=== PATIENT | female | born 1980 | race American Indian/Alaskan Native ===

== ENCOUNTER 2017-07-10 07:54 | Inpatient (IN) | payer OTHER, MEDICAID ==
[2017-07-10] MEDS ORDERED: Penicillin G Potassium 5 MILLUNITS in Sodium Chloride 0.9% 100 ML IV ONE (08:59)
[2017-07-10] MEDS ORDERED: Lidocaine 1% 30 ML SDV INJECT PRN (09:15)
[2017-07-10] MEDS ORDERED: Acetaminophen 325 MG Tab PO PRN (09:15)
[2017-07-10] MEDS ORDERED: Ondansetron 4 MG/2 ML SDV IV PRN (09:15)
[2017-07-10] MEDS ORDERED: Methylergonovine 0.2 MG/1 ML Amp IM PRN (09:15)
[2017-07-10] MEDS ORDERED: Carboprost Tromethamine 250 MCG/1 ML Amp IM PRN (09:15)
[2017-07-10] MEDS ORDERED: Lactated Ringers 500 ML IV ONE (09:15)
[2017-07-10] MEDS ORDERED: Tranexamic Acid 1,000 MG in Sodium Chloride 0.9% 100 ML IV PRN (09:15)
[2017-07-10] MEDS ORDERED: Lactated Ringers 1,000 ML IV SCH (09:15)
[2017-07-10] MEDS ORDERED: Misoprostol 400 MCG (4 X 100 MCG TAB) RECTAL PRN (09:15)
[2017-07-10] MEDS ORDERED: Sodium Chloride 0.9% 10 ML Syringe FLUSH PRN ×2 (09:15→10:23)
[2017-07-10] MEDS ORDERED: Nalbuphine 20 MG/1 ML Amp IVPUSH PRN (09:25)
[2017-07-10] MEDS ORDERED: Simethicone 80 MG Tab.Chew PO PRN (10:23)
[2017-07-10] MEDS ORDERED: Zolpidem 5 MG Tab PO PRN (10:23)
[2017-07-10] MEDS ORDERED: Benzocaine/Menthol 20%-0.5% Spray 56 GM Canister TOP PRN (10:23)
[2017-07-10] MEDS ORDERED: Oxytocin/Normal Saline 30 UNIT/500 ML BAG IV SCH (10:30)
--- NOTE | 2017-07-10 11:00 | PN ---
DATE: 07/10/2017 SUBJECTIVE: Pain medications through IV provided temporary relief from contractions. She does not want an intrathecal. She continues to have regular contractions with progressive cervical dilation. An AmniHook was used to rupture membranes and a small amount of clear fluid was observed. OBJECTIVE: Pelvic: Cervical exam, 7 to 8 cm dilation, 80% effaced, and 0 station, vertex suspected. heart tones tracing average of 130 at baseline. Accelerations noted with no decelerations. Category I strip. [place] tracing contractions every 2 minutes. ASSESSMENT: week IUP in active labor. GBS positive AROM- clear fluid. PLAN: We will continue to serially evaluate the patient, and at this time, anticipate a normal spontaneous vaginal delivery. [facility] /[id number] BRIAN
--- NOTE | 2017-07-10 11:06 | PCM.DEL ---
L & D Note - General Info Date of Service: 07/10/17 (1049) Mother's Due Date: 07/20/17 (38 3/7 week IUP) - Delivery Note Labor: Spontaneous Delivery Outcome: Livebirth Delivery Method: Spontaneous Vaginal Delivery-Single Presentation: Vertex Nuchal Cord: None Anesthesia Type: None Amniotic Fluid Description: Clear Episiotomy Type: None Laceration: None Placenta: Intact, Spontaneous, Expressed Cord: 3 Vessels Estimated Blood Loss: 300 Resuscitation Needed: No : Bulb Syringe, Stimulated, [place] Used Provider: Phi Elliott Score 1 min: 9 Score 5 min: 9 Second Stage Interventions: Reports: Pushing Effectively, Pushing, Feet in Foot Rests Delivery Comments (Free Text/Narrative):: , OA, Viable male over intact perineum Cord 3 vessel not around neck Placenta delivered by simple expression intact Mother and in good condition Viable male , Weight- 7 lbs 1oz Length- 20 1/2 inches 's- 9 and 9 at 1 minute and 5 minutes. - Patient Data Weight - Most Recent: 482 lb 12.997 oz Lab Results Last 24 Hours: Laboratory Results - last 24 hr 07/10/17 Range/Units 08:35 WBC 14.9 H (5.0-10.0) 10^3/uL RBC 4.29 (4.2-5.4) 10^6/uL Hgb 12.6 (12.0-16.0) g/dL Hct 37.3 (37.0-47.0) % MCV 86.9 (80-100) fL MCH 29.4 (27.0-34.0) pg MCHC 33.8 (33.0-35.0) g/dL Plt Count 187 (150-450) 10^3/uL Med Orders - Current: Current Medications Acetaminophen (Tylenol) 650 mg PO Q4H PRN PRN Reason: Pain (Mild 1-3) and fever Benzocaine/Menthol (Dermoplast Pain Relief [place]) 0 gm TOP Q4H PRN PRN Reason: Perineal comfort measures Carboprost Tromethamine (Hemabate Ds) 250 mcg IM ASDIRECTED PRN PRN Reason: HEMORRHAGE Docusate Sodium (Colace) 100 mg PO BID PRN PRN Reason: Constipation Ferrous Sulfate (Ferrous Sulfate) 325 mg PO WITHBREAKFAST [facility] Penicillin G Potassium 3 (millunits/ Sodium Chloride) 100 mls @ 200 mls/hr IV Q4H CHANDRIKA Lactated Ringer's (Ringers, Lactated) 500 mls @ 125 mls/hr IV .BOLUS ONE Stop: 07/10/17 13:14 Last Admin: 07/10/17 08:35 Dose: 500 mls/hr Lactated Ringer's (Ringers, Lactated) 1,000 mls @ 125 mls/hr IV ASDIRECTED CHANDRIKA Tranexamic Acid 1,000 mg/ (Sodium Chloride) 110 mls @ 660 mls/hr IV ONETIME PRN PRN Reason: Bleeding Oxytocin/Sodium Chloride (Pitocin In Ns 30 Unit/500 Ml) 30 unit in 500 mls @ 2 mls/hr IV TITRATE CHANDRIKA; 2 MUNITS/MIN PRN Reason: Protocol Ibuprofen (Motrin) 800 mg PO Q8H PRN PRN Reason: Mild Pain or Fever Lidocaine HCl (Xylocaine-Mpf 1%) 10 ml INJECT ASDIRECTED PRN PRN Reason: Perineal Repair Methylergonovine Maleate (Methergine) 0.2 mg IM ASDIRECTED PRN PRN Reason: Hemorrhage Misoprostol (Cytotec) 800 mcg RECTAL ASDIRECTED PRN PRN Reason: Hemorrhage Nalbuphine HCl (Nubain) 10 mg IVPUSH ONETIME PRN PRN Reason: Abdominal Pain Last Admin: 07/10/17 09:20 Dose: 10 mg Ondansetron HCl (Zofran) 4 mg IV Q4H PRN PRN Reason: Nausea/Vomiting Prenat Multivit/[employer]ior [employer]ist/Iron/Folic Ac ( Plus Iron) 1 each PO DAILY [facility] Simethicone (Simethicone) 80 mg PO Q4H PRN PRN Reason: Gas Sodium Chloride (Saline Flush) 10 ml FLUSH ASDIRECTED PRN PRN Reason: Keep Vein Open Sodium Chloride (Saline Flush) 10 ml FLUSH ASDIRECTED PRN PRN Reason: Keep Vein Open Zolpidem Tartrate (Ambien) 5 mg PO BEDTIME PRN PRN Reason: Insomnia Discontinued Medications Penicillin G Potassium 5 (millunits/ Sodium Chloride) 100 mls @ 200 mls/hr IV ONETIME ONE Stop: 07/10/17 09:28 Last Admin: 07/10/17 09:22 Dose: 200 mls/hr - Problem List Review Problem List Initiated/Reviewed/Updated: Yes - My Orders Last 24 Hours: My Active Orders 07/10/17 10:23 Benzocaine/Menthol [Dermoplast Pain Relief [place]] See Dose Instructions TOP Q4H PRN Docusate Sodium [Colace] 100 mg PO BID PRN Ibuprofen [Motrin] 800 mg PO Q8H PRN Simethicone 80 mg PO Q4H PRN Sodium Chloride 0.9% [Saline Flush] 10 ml FLUSH ASDIRECTED PRN Zolpidem [Ambien] 5 mg PO BEDTIME PRN 07/10/17 10:24 Up ad Verenice [RC] ASDIRECTED Assess Lochia [WOMSER] Per Unit Routine Assess Uterine Involution [WOMSER] Per Unit Routine Breast Pump [WOMSER] Per Unit Routine Ice Therapy [OM.PC] Per Unit Routine Perineal Care [OM.PC] Per Unit Routine Saline Lock Insert [OM.PC] Urgent Sitz Bath [OM.PC] Per Unit Routine 07/10/17 10:26 Peripheral IV Discontinue [OM.PC] Routine 07/10/17 10:30 Oxytocin/Normal Saline [Pitocin in NS 30 UNIT/500 ML] 30 unit in 500 ml IV TITRATE 07/10/17 13:00 Penicillin G Potassium [Pfizerpen] 3 millunits Sodium Chloride 0.9% [Normal Saline] 100 ml IV Q4H 07/11/17 06:00 CBC W/O DIFF,HEMOGRAM [HEME] Routine 07/11/17 08:00 Ferrous Sulfate 325 mg PO WITHBREAKFAST 07/11/17 09:00 Vit with Ca/FA/Iron [ Plus Iron] 1 each PO DAILY
[2017-07-10] MEDS ORDERED: Penicillin G Potassium 3 MILLUNITS in Sodium Chloride 0.9% 100 ML IV SCH (13:00)
--- NOTE | 2017-07-10 13:54 | HP ---
CHIEF COMPLAINT: Contractions beginning at 11:00 p.m. last night that have increased in frequency and intensity. HISTORY OF PRESENT ILLNESS: The patient is a 37-year-old G4, P1-1-1-2, currently at 38 and 3/7 weeks' of her intrauterine confirmed with a 20 and 6/7 weeks' ultrasound. Normally a patient of Dr. Rankin, she presents with her significant other, Neo. She states that after having a cervical check in the clinic by Dr. Griggs yesterday, she felt something was different and began having regular contractions around 11:00 p.m. last night that lasted throughout the night. The contractions initially were 8 to 10 minutes apart. Throughout the night they increased in intensity and are now 2 to 3 minutes apart. She denies leakage of fluid or vaginal bleeding, and movement has been good. She denies any recent fevers or chills, shortness of breath or chest pain, or edema, erythema, or tenderness in any extremity. She states that she has remained nauseous throughout most of her with occasional vomiting. She was taking Zofran for this earlier in the but has not taken it recently. She did have a migraine headache earlier this week without aura. She denies any other +recent headaches or visual changes. She denies any antepartum complications with this . HISTORY: This is the patient's fourth . Her first produced a term at 40 and 0/7 weeks on April 06, 2000, via spontaneous vaginal delivery at [facility] in [place], weighing 2693 g. Her second in 2009, resulted in a spontaneous at 14 weeks gestation. Her third resulted in a spontaneous vaginal delivery that was vacuum assisted at 35 weeks and 4 days gestation, producing a male weighing 2574 g, delivered by Dr. Yadav, at [facility] in [place] on June 23, 2014. She denies any antepartum complications with any pregnancies and, other than the vacuum assist with her third , she denies any intrapartum complications. She denies any complications with any prior delivery. PAST MEDICAL HISTORY: She has no current medical conditions. MEDICATIONS: 1. vitamins. ALLERGIES: Bactrim, developed blisters in her mouth as a baby. No other known allergies. PAST SURGICAL HISTORY: 1. Cholecystectomy in April 2012. 2. [place] tooth removal. FAMILY HISTORY: The patient herself is a twin. Cervical cancer in her paternal aunt and cousin. Thyroid disease in her mother. Pertinent negatives include defects or problems with anesthesia or bleeding problems as well as any history of diabetes, heart disease, lung disease, liver or kidney disease in any of her immediate family. Her 2 children are healthy. SOCIAL HISTORY: The patient is here with her significant other, Neo. She lives in [place] with her daughter who is 17, and her son who is 2. Neo has 3 kids. She currently works at the "[employer] in [place]". She is a current half pack per day smoker. She denies use of alcohol or any other drugs including marijuana, methamphetamine, and cocaine during her . She denies any history of recent travel. REVIEW OF SYSTEMS: Pertinent positives and negatives as listed under the HPI. PHYSICAL EXAMINATION: Vital Signs: To be updated and listed in [facility]. General: Alert, pleasant, well-appearing female in no acute distress. HEENT: Atraumatic. Anicteric sclerae. Oropharynx without erythema or exudate. Tonsils not enlarged. Extraocular muscles intact. No obvious deformities to external ears. Neck: Supple without adenopathy or stiffness. Heart: Regular rate and rhythm. S1 and S2. Lungs: Clear to auscultation bilaterally with normal respiratory effort. Abdomen: Soft, gravid. Neurologic: No obvious neurologic deficits. No clonus. Cervix: 3.5 cm dilated, 60% effaced, -1 station, vertex suspected. Extremities: No edema, erythema, or tenderness in any extremity. Radial and dorsalis pedis pulses 2+ and symmetric. Skin: Warm, dry, and well perfused. TESTING: Blood type O positive. Antibody screen negative. Rubella immune. Syphilis negative. Hepatitis B negative. HIV negative. Gonorrhea and chlamydia negative. Hepatitis C negative. Failed one-hour glucose tolerance test at 132, but passed the three-hour glucose tolerance test at 76, 123, 104 and 50, impaired glucose tolerance. TSH normal at 0.65. Group B streptococcus positive. Wet prep negative for Trichomonas, clue cells, fungal elements or budding yeast. heart monitoring: heart tones tracing at 130 beats per minute at baseline. Moderate ehgk-yb-coat variability with accelerations noted. No decelerations. Category I strip. [place] tracing contractions every 3 to 4 minutes. LABORATORY DATA: CBC pending. ASSESSMENT: 1. Intrauterine at 38 and 3/7 weeks gestation confirmed with a 20 and 6/7 weeks' ultrasound. 2. G4, P1-1-1-2. 3. Blood type O positive, rubella immune, group B streptococcus positive. 4. Current smoker. 5. Elevated glucose tolerance test. 6. History of delivery. 7. History of delivery by vacuum extraction. 8. High-risk in third trimester. PLAN: Admit patient to Labor and Delivery floor, active labor is suspected with heart rate tracing reassuring. At this time, the patient does request IV medications for pain, but desires to not be "numb for delivery". Will initiate Penicillin G protocol as patient is GBS positive. Please see orders for further details. Will serially evaluate the patient to determine progress of labor and reevaluate. The patient's questions have been answered. She expressed understanding and is in agreement with the above plan. We will continue to follow closely. The history, physical, assessment and plan are per Dr. Elliott. This note is being scribed for Dr. Elliott. [facility] /[id number] MTDD
[2017-07-10] MEDS: Ibuprofen 800 MG Tab PO PRN (15:56)
[2017-07-10] MEDS: Docusate Sodium 100 MG Cap PO PRN (21:31)
[2017-07-11] MEDS: Ibuprofen 800 MG Tab PO PRN ×2 (03:03→13:27)
[2017-07-11 07:49] VITALS: BP 107/67
[2017-07-11] MEDS ORDERED: Ferrous Sulfate 325 MG Tab PO SCH (08:00)
[2017-07-11] MEDS ORDERED: Prenatal Multivitamin with Calcium/Folic Acid/Iron Tab PO SCH (09:00)
[2017-07-11] MEDS: Docusate Sodium 100 MG Cap PO PRN (09:05)
--- NOTE | 2017-07-11 12:56 | PN ---
DATE: 07/11/2017 SUBJECTIVE: day 1 status post spontaneous vaginal delivery. No concerns per nursing staff or per patient. The patient feels that her pain is well controlled on current medications. She is ambulating and tolerating a general diet. She denies fevers or chills, headaches or blurry vision, lightheadedness or dizziness, shortness of breath or chest pain, nausea or vomiting, sharp abdominal pains, difficulty with urination or swelling or tenderness in any extremity. She notes mild lochia. OBJECTIVE: Vital signs: Temperature 98.1 Fahrenheit, heart rate 66, blood pressure 107/67, respiratory rate 16, and oxygen saturation 100% on room air. General: Alert, pleasant, well-appearing female. Heart: Regular rate and rhythm. S1 and S2. Lungs: Clear to auscultation bilaterally with normal respiratory effort. Abdomen: Soft, nondistended, nontender to palpation. Uterus is firm and 3 fingerbreadths below the umbilicus. Neurologic: No obvious neurologic deficits. Extremities: No edema, erythema, or tenderness in any extremity. Skin: Warm, dry, and well perfused. LABORATORY DATA: Drawn this morning; white blood cell count 11.1, hemoglobin 11, and platelet count 178. ASSESSMENT: 1. day 1, status post normal spontaneous vaginal delivery. 2. Intrauterine at 38 and 3/7 weeks' gestation. 3. Group B streptococcus positive. Blood type O positive. Rubella immune. 4. Current smoker. 5. Elevated glucose tolerance test, impaired glucose tolerance. 6. History of delivery. 7. History of delivery by vacuum extraction. 8. 4, para 2-1-1-3. PLAN: Discharge home today. It was discussed with the patient reasons to return or go to the emergency room including but not limited to temperature equal or greater to 100.4, increasing abdominal pain or vaginal bleeding and red hot tender breasts. The patient was instructed to schedule a [address] Griggs. The plan was discussed with the patient, she expressed understanding and is in agreement. All of her questions were answered. The history, physical, assessment and plan are per Dr. Elliott and this note is being scribed for Dr. Elliott. [facility] /[id number] BRIAN
--- NOTE | 2017-07-12 01:26 | DISCH ---
INDICATION FOR ADMISSION: Ms. Young is a 37-year-old, 4, para 1-1-1- 2 female at 38 and 3/7 weeks' gestation, who reported to Labor and Delivery in active labor. On admission, she was noted to be 3+ cm dilated. She was group B strep vaginal culture positive, so penicillin G IV was given to the patient. Then within a couple hours, she was noted to be 7 to 8 cm. At that point, artificial rupture of membranes occurred after her penicillin G IV was in and she quickly dilated to complete. She then started pushing, and she had a normal spontaneous vaginal delivery, OA of a viable male infant over an intact perineum. The cord was 3 vessel, not around the neck. The placenta was delivered by simple expression intact. Mother and did quite well. She had a viable male infant weighing 7 pounds 1 ounce, 20-1/2 inches long with scores of 9 at 1 minute, 9 at 5 minutes. She recovered without difficulty. The went to the nursery for evaluation. She tolerated the rest of her hospital stay quite well. She was afebrile. Vital signs were stable. She tolerated her diet well and ambulated quite well. She had minimal lochia. She was discharged to home on day #1. She will follow up with Dr. Griggs for care. LABORATORY AND DIAGNOSTIC STUDIES: On 07/10/2017, WBC 14.9, hemoglobin 12.6, hematocrit 37.3, platelet count 187,000. On 07/11/2017, WBC 11.1, hemoglobin 11.0, hematocrit 32.3, platelet count 178,000. DISCHARGE INSTRUCTIONS: 1. Discharged to home. 2. Follow up with Dr. Griggs at 6-week checkup or sooner if problems developed. 3. Follow up with infant within a week with Dr. Griggs. 4. Ibuprofen and Tylenol for pain p.r.n. 5. No douching, tampons, or intercourse for 6 weeks. 6. Discharge instructions including activity, followup, and medications were discussed with the patient. She understands these and is willing to comply with these. DISCHARGE DIAGNOSES: 1. A 38 and 3/7 weeks' intrauterine . 2. Advanced maternal age. 3. Group B streptococcal vaginal culture positive. 4. Active labor. 5. Penicillin G IV for group B streptococcus protocol given. 6. Artificial rupture of membranes, clear fluid. 7. Normal spontaneous vaginal delivery of a viable male , weighing 7 pounds 1 ounce, 20-1/2 inches long with scores of 9 at 1 minute, 9 at 5 minutes. 8. Intrathecal anesthesia. 9. Acute anemia secondary to blood loss. [facility] /[id number]
== END 2017-07-11 13:50 | disposition home or self-care (01) | DRG 775 ==
LOC: DL.OBCHECK 07:54 → DL.OB 08:48 → OBSVTOIN 10:49 → DL.OB 10:49
PROVIDERS: ADMIT Obstetrics & Gynecology; ATTEND Obstetrics & Gynecology
PROC: 10E0XZZ Delivery of Products of Conception, External Approach (ICD-10-PCS; principal; 2017-07-11)
PROC: 10907ZC Drainage of Amniotic Fluid, Therapeutic from Products of Conception, Via Natural or Artificial Opening (ICD-10-PCS; 2017-07-11)
DX: O99.824 Streptococcus B carrier state complicating childbirth (principal); Z3A.38 38 weeks gestation of pregnancy; Z37.0 Single live birth; O99.334 Smoking (tobacco) complicating childbirth; F17.210 Nicotine dependence, cigarettes, uncomplicated
CPT/HCPCS: 36415; 59409; 85027; A9270-GY; J2300; J2540; J2590; J7050; J7120